=== PATIENT | male | born 1960 | race Caucasian/White ===

== ENCOUNTER 2020-02-02 07:18 | Inpatient (IN) | payer BC ==
[~2020-02-02] VITALS: Ht 182.9 cm; Wt 100.7 kg
--- NOTE | ~2020-02-02 | HEMODYNAMI ---
PATIENT:ESTEPHANIE GILES MEDICAL RECORD: [id number] : 56 LOCATION[facility] Simental2213 [id number] ADMISSION DATE: 02/02/20 Generatedon:02/05/20208:00 Patient name: ESTEPHANIE GILES Patient #: [id number] SSN: [id number] : 1960 Date of study: 02/05/2020 Page: Of Hemodynamic Procedure Report Patient Data Patient Demographics Procedure consent was obtained First Name: ESTEPHANIE Gender: Male Last Name: CHAN : 1960 Middle Initial: ANGEL Age: 59 year(s) Patient #: [id number] Race: SSN: [id number] Additional ID: [id number] Contact details [address]: [address] [place] [address] State: [place] City: [place] Zip code: [address] Past Medical History Performed procedures and imaging results Date Procedure Procedure Results Comments 02/02/2020 Stress testing Positive->Intermediate with SPECT MPI risk Allergies: No known allergies Admission Admission Data Admission Date: 02/02/2020 Admission Time: 9:23 Arrival Date: 02/05/2020 Arrival Time: 0:00 Admit Source: Other Insurance Payor: Private Room #: [id number] health insurance [facility] #: [id number] Lab Results Lab Result Date: 02/05/2020 Lab Result Time: 0:00 Biochemistry Name Units Result Min Max BUN mg/dl 15 --(--*-)-- 7 18 Creatinine mg/dl 1 --(--*-)-- 0.6 1.3 eGFR ml/min 81 *-(----)-- 90 120 NONAFRICAN CBC Name Units Result Min Max Hematocrit % 35.2 *-(----)-- 42 54 Hemoglobin g/dl 11.2 *-(----)-- 13.5 17.5 Procedure Procedure Types Cath Procedure Diagnostic Procedure LHC LHC w/Coronaries Sedation Charges Moderate Sedation up to 15 minutes Procedure Description Procedure Date Procedure Date: 02/05/2020 Procedure Start Time: 7:43 Procedure End Time: 7:57 Procedure Staff Name Function Ian Salinas MD Performing Physician Jae Perdomo RN Nurse Marlena Reed RT Monitor Rosangela Spencer RT Scrub Procedure Data Cath Procedure Fluoroscopy Diagnostic fluoroscopy Total fluoroscopy Time: 3.2 time: 3.2 min min Diagnostic fluoroscopy Total fluoroscopy dose: 716 dose: 716 mGy mGy Contrast Material Contrast Material Type Amount (ml) Isovue 300 66 Entry Location Entry Primary Successful Side Size Upsize Upsize Entry Closure Del Cid ccessful Closure Location (Fr) 1 (Fr) 2 (Fr) Remarks Device Remarks Radial Right 6 Fr Mechanical artery Short Compression Estimated blood loss: 5 ml Diagnostic catheters Device Type Used For End Catheter Placement DIAGNOSTIC Rocky 110cm Multi-vessel 5Fr catheter ([id number]) Angiography Procedure Complications No complications Procedure Medications Medication Administration Route Dosage 0.9% NaCl I.V. 100 ml/hr Oxygen etCO2 Nasal cannula 2 l/min Heparin Flush Bag added to field 2 bags (1000units/500ml NS) Lidocaine 2% added to field 20 Radial Cocktail added to field 1 syringe (Verapamil 2mg/Nitro 400mcg/Heparin 1500units) Versed I.V. 1 mg Fentanyl I.V. 50 mcg Radial Cocktail I.A. 1 syringe (Verapamil 2mg/Nitro 400mcg/Heparin 1500units) Versed I.V. 1 mg Hemodynamics Rest HGB: 11.2 (g/dl) Heart Rate: 70 (bpm) Pressure Samples Time Site Value (mmHg) Purpose Heart Use Rate(bpm) 7:48 LV 120/-5,10 Snapshot 73 7:48 AO 109/66(84) Pullback 77 7:48 LV 127/-1,13 Pullback 77 Gradients Valve Time Site 1 Site 2 Mean SEP/DFP Peak To Heart Use (mmHg) (sec/min) Peak Rate (mmHg) (bpm) Aortic 7:48 LV AO 9 15 18 77 127/-1,13 109/66(84) Calculations Valve P-P Mean Valve Index Valve Source Name Gradient Area Flow (cm2) Aortic 18 9 18 9 Snapshots Pre Cath Intra NCS Post Cath Vital Signs Time Heart Resp SPO2 etCO2 NIBP (mmHg) Rhythm Pain Sedation Rate (ipm) (%) (mmHg) Status Level (bpm) 7:26:11 69 20 95 0 135/84(115) NSR 0 (11) 10(A) , No pain 7:30:23 72 21 94 0 136/82(112) NSR 0 (11) 10(A) , No pain 7:34:35 69 24 96 0 132/82(112) NSR 0 (11) 10(A) , No pain 7:38:47 68 17 96 0 130/77(114) NSR 0 (11) 10(A) , No pain 7:42:57 68 18 94 0 131/79(103) NSR 0 (11) 10(A) , No pain 7:47:13 70 18 94 0 108/61(83) NSR 0 (11) 9(A) , No pain 7:51:17 73 18 94 0 112/72(91) NSR 0 (11) 9(A) , No pain 7:55:25 67 19 94 0 132/67(95) NSR 0 (11) 10(A) , No pain Medications Time Medication Route Dose Verified Delivered Reason Notes Effectiveness by by 7:40:05 0.9% NaCl I.V. 100 Jae Jae Per ml/hr Conor Perdomo physician RN RN 7:40:15 Oxygen etCO2 2 l/min Jae Jae for low 02 Nasal Lorigan Lorigan sats cannula RN RN 7:40:27 Heparin Flush added 2 bags Jae Jae used for Bag to Conor Perdomo procedure (1000units/500ml [facility] RN RN NS) 7:40:39 Lidocaine 2% added 20ml Jae Jae for local to vial Lorigan Lorigan anesthetic field RN RN 7:40:50 Radial Cocktail added 1 Jae Jae used for (Verapamil to syringe Lorigan Lorigan procedure 2mg/Nitro field RN RN 400mcg/Heparin 1500units) 7:41:08 Versed I.V. 1 mg Jae Jae for sedation Conor Perdomo RN RN 7:41:16 Fentanyl I.V. 50 mcg Jae Jae for sedation Conor Perdomo RN RN 7:46:16 Radial Cocktail I.A. 1 Jae Ian for (Verapamil syringe Conor Salinas MD vasodilation 2mg/Nitro RN 400mcg/Heparin 1500units) 7:46:26 Versed I.V. 1 mg Jae Jae for sedation Conor Perdomo RN banquet coordinator Log Time Note 6:39:00 Informed consent obtained and on chart 6:39:25 Diagnostic Cath Status : Elective 6:39:37 Arrival Date: 02/05/2020 12:00:00 AM 6:39:38 Admit Source: Other 6:39:43 Insurance Payor : Private health insurance 6:48:08 Lab Result : eGFR NONAFRICAN 81 ml/min 6:48:08 Lab Result : Hemoglobin 11.2 g/dl 6:48:08 Lab Result : BUN 15 mg/dl 6:48:08 Lab Result : Creatinine 1 mg/dl 6:48:08 Lab Result : Hematocrit 35.2 % 6:48:13 Procedure Status Urgent Heart Cath (IP). 6:48:15 Time tracking: Regular hours (M-F 7:00 - 5:00) 6:48:20 Plan of Care:Hemodynamics will remain stable., Cardiac rhythm will remain stable., Comfort level will be maintained., Respiratory function will remain adequate., Patient/ family verbilizes understanding of procedure., Procedure tolerated without complication., Recovers from procedure without complications.. 6:48:29 H&P Date Dictated: 02/02/2020 Within 30 days and on chart.. 6:48:53 Stress Test: yes; abnormal INFERIOR 6:49:10 Risk of Mortality: 0.1 6:49:13 Risk of blood transfusion: 2.7 6:49:20 Risk of MESFIN: 0.3 7:02:14 Marlena Reed RT(R) sent for patient. Start room use. 7:25:05 Patient received from Med II to CCL 2 Alert and oriented. Tansferred to table in Supine position. 7:25:06 Warm blankets applied, and ike hugger turned on for patient comfort. 7:25:06 Correct patient and procedure confirmed by team. 7:25:07 ECG and BP/O2 sat monitors applied to patient. 7:25:08 Vital chart was started 7:25:09 Pre-procedure instructions explained to patient. 7:25:09 Pre-op teaching completed and patient verbalized understanding. 7:25:12 Family in patients room. 7:25:15 Patient NPO since Midnight. 7:25:22 Patient allergic to No known allergies 7:25:24 Is the patient allergic to Iodine/contrast media? No. 7:25:26 Is the patient allergic to Iodine/contrast media? No. 7:25:30 Was the patient premedicated? Unknown 7:25:36 Patient diabetic? Yes. 7:25:37 If diabetic: On Metformin? Yes 7:25:41 If on Metformin: Last Dose? 02/03/2020 7:25:43 ----Pre-sedation anethsthesia assessment.---- 7:25:46 Previous problem with sedation/anesthesia? No ? 7:25:48 Snore? Yes 7:25:50 Sleep apnea? No 7:25:51 Deviated septum? No 7:25:53 Opens mouth fully? Yes 7:25:57 Sticks out tongue? Yes 7:25:59 Airway obstruction? No ? 7:26:01 Dentures? No ? 7:36:11 Pre procedure: right dorsailis pedis pulse 2+ Normal; easily identifiable; not easily obliterated 7:36:13 Pre procedure: left dorsailis pedis pulse 2+ Normal; easily identifiable; not easily obliterated 7:36:16 Modified Yoel's test Radial < 7 seconds 7:36:18 Patient pain scale 0/10 ?. 7:36:23 IV patent on arrival in left forearm with 0.9% NaCl at O. 7:36:26 Lab results completed and on chart. 7:36:30 Right Radial & Right Groin area was prepped with chlora-prep and draped in sterile fashion 7:36:31 Alarms reviewed by R. N. 7:36:31 Sharps counted by scrub and verified by R.N. 7:36:33 Physician arrived 7:36:33 --------ALL STOP TIME OUT------ 7:36:34 Final Timeout: patient, procedure, and site verified with staff and physician. All members of the team are in agreement. 7:36:36 Right Radial & Right Groin site verified by team. 7:36:39 Fire Safety Assessment: A--An alcohol-based skin anteseptic being used preoperatively., C--Open oxygen or nitrous oxide is being used., D--An ESU, laser, or fiber-optic light is being used. 7:36:43 Physical assessment completed. ASA score P 2 - A patient with mild systemic disease as per Ian Salinas MD. 7:38:56 2) 60-89 Mildly reduced kidney function, and other findings (as for stage 1) point to kidney disease. 7:39:02 Maximum allowable contrast dose (3.7 X eGFR X 0.75)225 ml. 7:39:05 Sedation plan: IV Moderate Sedation Medication:Versed, Fentanyl 7:39:51 Use device set Radial Dx or PCI 7:39:52 ACIST Syringe (23009) opened to sterile field. 7:39:52 Medline Cath Pack ([id number]) opened to sterile field. 7:39:52 Bag Decanter (2002) opened to sterile field. 7:39:53 ACIST Hand Control (82790) opened to sterile field. 7:39:53 ACIST Manifold (05641) opened to sterile field. 7:39:53 Tegaderm 4 x 4 (1626W) opened to sterile field. 7:39:54 MBrace Wrist Support (939484410) opened to sterile field. 7:39:56 NEEDLE Cook 21G 4cm Radial (Y12942) opened to sterile field. 7:39:57 EMERALD Guide Wire (708-398) opened to sterile field. 7:39:58 SHEATH 6FR RAIN (5353584) opened to sterile field. 7:40:05 0.9% NaCl 100 ml/hr I.V. was administered by Jae Perdomo RN; Per physician; Verbal order read back and verified. 7:40:15 Oxygen 2 l/min etCO2 Nasal cannula was administered by Jae Perdomo RN; for low 02 sats; Verbal order read back and verified. 7:40:27 Heparin Flush Bag (1000units/500ml NS) 2 bags added to field was administered by Jae Perdomo RN; used for procedure; Verbal order read back and verified. 7:40:39 Lidocaine 2% 20ml vial added to field was administered by Jae Perdomo RN; for local anesthetic; Verbal order read back and verified. 7:40:50 Radial Cocktail (Verapamil 2mg/Nitro 400mcg/Heparin 1500units) 1 syringe added to field was administered by Jae Perdomo RN; used for procedure; Verbal order read back and verified. 7:41:08 Versed 1 mg I.V. was administered by Jae Perdomo RN; for sedation; Verbal order read back and verified. 7:41:16 Fentanyl 50 mcg I.V. was administered by Jae Perdomo RN; for sedation; Verbal order read back and verified. 7:43:31 Procedure started. 7:43:31 Full Disclosure recording started 7:43:38 Local anesthetic to right radial artery with Lidocaine 2% by Ian Salinas MD.INITIAL ACCESS ONLY 7:43:47 A 6 Fr Short sheath was inserted into the Right Radial artery 7:46:16 Radial Cocktail (Verapamil 2mg/Nitro 400mcg/Heparin 1500units) 1 syringe I.A. was administered by Ian Salinas MD; for vasodilation; Verbal order read back and verified. 7:46:26 Versed 1 mg I.V. was administered by Jae Perdomo RN; for sedation; Verbal order read back and verified. 7:47:16 Baseline sample Acquired. 7:48:00 A DIAGNOSTIC Rocky 110cm 5Fr catheter (114245) was advanced over the wire and used for Multi-vessel Angiography. 7:48:27 LV hemodynamics recorded. 7:48:28 LV gram done using ROSA 7:48:30 Injector settings: Ml/sec: 5, Volume: 15, 7:48:39 EF : 60 % 7:50:02 LCA angiography performed. 7:50:05 Injector settings: Ml/sec: 3, Volume: 6, 7:51:37 RCA angiography performed. 7:51:52 Injector settings: Ml/sec: 3, Volume: 6, 7:53:12 Catheter removed. 7:53:17 ZEPHYR REGULAR TR BAND (499049) opened to sterile field. 7:53:27 Sheath removed intact; hemostasis achieved with Mechanical Compression to the Right Radial artery. 7:55:11 Procedure ended.(Physican Out) 7:55:35 Fluoroscopy time 03.20 minutes. 7:55:40 Fluoroscopy dose: 716 mGy 7:55:40 Flurop Dose total: 716 7:55:45 Dose Area Product 00176 mGy/cm. 7:55:49 Contrast amount:Isovue 300 66ml. 7:55:51 Maximum allowable dose exceeded? No. 7:55:52 Sharps counted by scrub and verified by R.N. 7:55:55 [place] band inflated with 10cc of air. 7:55:57 Insertion/operative site no bleeding no hematoma. 7:55:58 Post Procedure Pulses reassessed and unchanged 7:56:01 Post procedure rhythm: unchanged. 7:56:22 Estimated blood loss: 5 ml 7:56:24 Post procedure instruction explained to patient.Patient verbalizes understanding. 7:56:24 Patient needs reinforcement of post procedure teaching. 7:56:56 Procedure type changed to Cath procedure, Diagnostic procedure, LHC, C w/Coronaries, Sedation Charges, Moderate Sedation up to 15 minutes 7:56:57 Procedure and supply charges have been captured, reviewed, submitted and are correct. 7:57:01 Procedure Complication : No complications 7:57:03 Vital chart was stopped 7:57:04 [facility] Findings: MVD- CABG consult 7:57:06 Operative report dictated upon procedure completion. 7:57:06 See physician's report for complete and final results. 7:57:07 Report given to Med II. 7:57:10 Patient transfered to Med II with Stretcher. 7:57:14 Procedure ended. 7:57:14 Full Disclosure recording stopped 7:57:22 End room use (Document Last) 7:59:38 End room use (Document Last) 8:00:02 End room use (Document Last) Device Usage Item Name Manufacture Quantity Catalog Hospital Part Current Minima l Lot# / Number Charge Number Stock Stock Serial# Code ACIST Acist 1 61375 835219 262517 964122 20 Syringe Medical (08605) Systems Inc Medline Medline 1 [id number] 777472 30966 203779 5 Cath Pack ([id number]) Bag Microtek 1 124264 63911 505666 5 Decanter Medical Inc. () ACIST Hand Acist 1 01871 334713 420230 170989 5 Control Medical (30266) Systems Inc ACIST Acist 1 69723 170691 699416 559316 5 Manifold Medical (08639) Systems Inc Tegaderm 4 3M 1 1626W 769430 837802 870869 5 x 4 (1626W) MBrace Advanced 1 140-0250-00 813685 91871 106372 5 Wrist Vascular Support Dynamics (888144009) NEEDLE vBrand Medical 1 M85500 101867 641049 016464 5 21G 4cm Radial (M96827) EMERALD Cardinal 1 502-455 985870 915451 595191 5 Guide Wire Health (415-362) SHEATH 6FR Cardinal 1 0346666 653650 8926347 091694 5 [facility] Health (5507728) DIAGNOSTIC Terumo 1 40-5553 375371 089230 071732 5 Rocky 110cm 5Fr catheter (657325) ZEPHYR Cardinal 1 943828 284562 8548890 010690 5 REGULAR TR Health BAND (435513) Signature Audit [place] Stage Time Signature Unsigned Intra-Procedure 02/05/2020 Marlena Reed 7:59:38 AM RT(R) Intra-Procedure 02/05/2020 Jae 8:00:02 AM Conor RN Intra-Procedure 02/05/2020 Ian Salinas MD 8:00:28 AM Signatures Performing Physician : Signature : Ian Salinas MD Date : Time : Nurse : Jae Perdomo Signature : RN Date : Time : Monitor : Marlena Reed RT Signature : Date : Time : [facility] [address] [place] [address], [place] [address]
[2020-02-02] MEDS ORDERED: GLUCOPHAGE500 MG PO (07:31)
[2020-02-02] MEDS ORDERED: AMBIEN10 MG PO (07:32)
[2020-02-02] MEDS ORDERED: LISINOPRIL5 MG PO (07:32)
[2020-02-02 08:25] LABS: HEMATOCRIT 33.8 % (42.0-54.0); LYMPHOCYTES 15.5 % (15-50); MCH 26.1 pg (26.0-34.0); MCHC 32.5 g/dL (31.0-37.0); MCV 80.1 fL (80.0-100.0); NEUTROPHILS 74.8 % (40-80); RBC 4.22 10x6/uL (4.20-6.10); RDW 12.7 % (11.5-14.5); WBC 6.7 10x3/uL (4.8-10.8)
[2020-02-02 08:31] LABS: PLATELET COUNT 225 10x3/uL (130-400)
[2020-02-02 08:40] LABS: APTT 29.8 SECONDS (22.8-39.4); CALC OSMOLALITY 283 mosm/kg (275-300); CALCIUM 8.8 mg/dL (8.5-10.1); CARBON DIOXIDE 24.5 mmol/L (21.0-32.0); CHLORIDE - SERUM 106 mmol/L (98-107); INR 0.98 (0.85-1.17); POTASSIUM - SERUM 4.6 mmol/L (3.5-5.1); SODIUM 140 mmol/L (136-145); UREA NITROGEN 15 mg/dL (7-18); eGFR NON AFRICAN AMERICAN 81 mL/min (90-120)
[2020-02-02 08:42] LABS: GLUCOSE 165 mg/dL (74-106)
--- NOTE | 2020-02-02 08:43 | NUR ---
GLUCOSE COLLECTED VIA LABWORK.
[2020-02-02 08:55] VITALS: BP 128/78
[2020-02-02 08:57] LABS: ALBUMIN 3.7 g/dL (3.4-5.0); ALKALINE PHOSPHATASE 72 U/L (30-120); ALT (SGPT) 32 U/L (10-68); BILIRUBIN - TOTAL 0.28 mg/dL (0.2-1.3); CKMB 0.5 U/L (0.0-3.6); CREATINE KINASE 92 UL (21-232); MAGNESIUM - SERUM 1.7 mg/dL (1.8-2.4); PROTEIN - SERUM 7.2 g/dL (6.4-8.2); THYROID STIMULATING HORMONE 0.73 uIU/mL (0.36-3.74); TROPONIN-I < 0.017 ng/mL (0.000-0.060)
[2020-02-02 11:55] VITALS: BP 145/83
[2020-02-02 16:18] VITALS: BP 139/73
[2020-02-02 16:51] VITALS: BP 130/76; BMI 30.2
[2020-02-02] MEDS ORDERED: METHOCARBAMOL500 MG PO (17:55)
[2020-02-02] MEDS ORDERED: HYDROCODON-ACE1 EA10 PO (17:56)
[2020-02-02] MEDS ORDERED: DICLOFENAC SODI50 MG PO (17:56)
[2020-02-02 20:00] VITALS: BP 114/75
--- NOTE | 2020-02-02 20:00 | NUR ---
PT SITTING UP IN BED WITHOUT DISTRESS, AOX4. AT BESIDE. PT HAS NO WEAKNESS/DEFECITS AT THIS TIME. 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 REQUESTED AMBIEN TO TAKE TONIGHT. CALLED DR PHILLIPS, ORDER RECIEVED FOR AMBIEN. DENIES OTHER NEEDS. CL IN REACH, WILL CTM
[2020-02-03] VITALS: BP 132/74
[2020-02-03 04:00] VITALS: BP 114/62
[2020-02-03 05:15] LABS: HEMATOCRIT 32.4 % (42.0-54.0); HEMOGLOBIN 10.6 g/dL (13.5-17.5); MCH 26.2 pg (26.0-34.0); MCHC 32.7 g/dL (31.0-37.0); MEAN PLATELET VOLUME 7.8 fL (7.4-10.4); NEUTROPHILS 67.1 % (40-80); PLATELET COUNT 229 10x3/uL (130-400); RBC 4.05 10x6/uL (4.20-6.10); RDW 12.6 % (11.5-14.5); WBC 6.5 10x3/uL (4.8-10.8)
[2020-02-03 05:52] LABS: ALBUMIN 3.4 g/dL (3.4-5.0); ALKALINE PHOSPHATASE 59 U/L (30-120); ALT (SGPT) 32 U/L (10-68); BILIRUBIN - TOTAL 0.53 mg/dL (0.2-1.3); CALC OSMOLALITY 273 mosm/kg (275-300); CALCIUM 8.4 mg/dL (8.5-10.1); CHLORIDE - SERUM 103 mmol/L (98-107); CKMB 0.7 U/L (0.0-3.6); CREATINE KINASE 106 UL (21-232); GLUCOSE 125 mg/dL (74-106); PROTEIN - SERUM 6.9 g/dL (6.4-8.2); SODIUM 136 mmol/L (136-145); TROPONIN-I < 0.017 ng/mL (0.000-0.060); UREA NITROGEN 14 mg/dL (7-18); eGFR NON AFRICAN AMERICAN 81 mL/min (90-120)
[2020-02-03 09:35] VITALS: BP 109/65
[2020-02-03 09:41] LABS: CHOL - HDL RATIO 5.5 ratio (2.3-4.9); LDL-HDL RATIO 3.4 ratio (1.5-3.5)
[2020-02-03 13:17] VITALS: BP 131/74
[2020-02-03 14:08] VITALS: BMI 30.1
[2020-02-03 16:50] VITALS: Ht 182.9 cm; Wt 100.7 kg
[2020-02-03 17:47] VITALS: BP 139/76
[2020-02-03 20:00] VITALS: BP 128/77
[2020-02-04 04:00] VITALS: BP 136/80
--- NOTE | 2020-02-04 06:46 | HP ---
PATIENT: ESTEPHANIE GILES MEDICAL RECORD: [id number] ACCOUNT: [id number] LOCATION:D.MS Simental2213 : 56 ADMISSION DATE: 02/02/20 PCP: MARIA TERESA PHILLIPS MD HISTORY AND PHYSICAL EXAMINATION REASON FOR ADMISSION: Left-sided weakness and chest tightness. HISTORY OF PRESENT ILLNESS: The patient is a 59-year-old male with history of metabolic syndrome. He has noted for the last month or so, if he weed-eats the yard or does anything strenuous, he will have substernal chest discomfort, described as a tightness. If he stops and rest it, he will gradually resolve. He has had no radiation of pain, nausea, vomiting or shortness of breath. Yesterday, he [facility] Upon returning home, getting out of the car, he felt like he had sat on his billfold too long that his left leg felt a little numb. He is able to unload the groceries, but noticed through the night that the symptoms continued and his leg felt a little bit unsteady, it did not respond. He also had some symptoms of his left upper extremity. His dialysis registered nurse was off. Denies headache or visual changes. He did not improve. This morning, he came to the Emergency Room for this reason. He also has had this exertional chest discomfort, but had not mentioned to his originally. He admits to some mild fatigue, but no overt palpitations or near syncope. PAST MEDICAL HISTORY: AODM, well controlled, obesity, had sigmoid diverticulosis requiring laparoscopic assisted sigmoidectomy in 2012, hyperlipidemia, history of lumbago, cervical arthritis and ACF, history of statin myalgias, IBS, history of chronic anxiety, history of kidney stones, and essential hypertension. PAST SURGICAL HISTORY: Laparoscopic assisted left sigmoid resection in 2014, anterior cervical fusion, and carpal tunnel release. FAMILY HISTORY: Positive for hypertension and grandfather had colon cancer. SOCIAL HISTORY: He is . 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 He is a nonsmoker, drinks some alcohol occasionally. ALLERGIES: None mentioned. HOME MEDICATIONS: Diclofenac 50 mg b.i.d. after meals, [place] 10/325 one at bedtime p.r.n. severe cervical back pain, lisinopril 10 mg a day, Ambien 10 mg at bedtime for sleep, and metformin 500 nightly. REVIEW OF SYSTEMS: GENERAL: He has not had weight change, fever or fatigue. HEENT: No recent visual change, sinus congestion, sore throat or trouble articulating. RESPIRATORY: No SOB or cough or hemoptysis. CARDIAC: He has had exertional chest discomfort that will occur with doing yard work or walking up steps. It will last 2-3 minutes. If he sits and rests, then resolves. It does not radiate. It was not associated with shortness of breath, palpitations, nausea or vomiting. GASTROINTESTINAL: No recent dyspepsia, change in stools or blood per rectum. GENITOURINARY: Nocturia once nightly. No dysuria. MUSCULOSKELETAL: Has chronic cervical neck pain. HISTORY AND PHYSICAL [id number] ESTEPHANIE GILES SKIN: No radiculopathy. INTEGUMENTARY: No rash or itching. PSYCHIATRIC: Admits to anxiety, but no depressed mood. PHYSICAL EXAMINATION: VITAL SIGNS: A 59-year-old male. At this time, he has clear speech. Oriented to person, place, and time. He is in no acute distress and chest pain-free currently. VITAL SIGNS: Temperature 97.3 Fahrenheit orally, pulse is 72 and regular, respirations are 18, blood pressure 150/86 initially, he is now 128/78, sats 98% on room air. GENERAL: The patient is alert and oriented. HEENT: Eyes are clear. He has male pattern balding. Oropharynx unremarkable. NECK: Shows limited range of motion, flexion, extension, which is chronic. Carotids: No bruits. Thyroid not enlarged. CHEST: Distant breath sounds without wheeze or rales. HEART: Regular rate and rhythm, without MGR. PMI appropriate. ABDOMEN: Soft, obese, nontender. No organomegaly or tenderness. GENITOURINARY: Deferred. EXTREMITIES: No CC&E. NEUROLOGICAL: Oriented to person, place, and time. Cranial nerves intact. Gait was not tested. He has slight decreased dialysis registered nurse in the left versus the right, he is right handed. He has slight decreased flexion and extension of his right quadriceps. Babinski's are negative. Sensory is intact throughout. Initial CT scan of the brain was unremarkable. Chest x-ray is unremarkable. LABORATORY DATA: H&H is 11 and 33.8 with normal indices. PT and PTT are normal. Magnesium was low at 1.7, BUN and creatinine are 15 and 1.1, potassium is 4.6, glucose is 165, nonfasting. Cardiac enzymes are negative. Liver functions are normal. EKG shows sinus rhythm with right bundle-branch block, age indeterminate. CT of the head with and without contrast showed no hemorrhage, infarction or extra fluid collections moderate to marked atherosclerosis of the carotid siphons with resultant moderate stenosis bilaterally. No significant evidence of occlusion. Posterior circulation was difficult to assess due to streak artifact from dental appliance. ASSESSMENT: 1. Symptoms of transient ischemic attack versus cerebrovascular accident. The patient is be on the 4-hour window for thrombolytics. 2. Exertional chest pain suggesting angina. 3. Metabolic syndrome. 4. Hypomagnesemia. PLAN: The patient will be admitted for telemetry, cardiology, and neurology consultation. We will order echo bubble study today. Place nitropatch. Further workup to follow. TRANSINT:[id number] Voice Confirmation ID: [id number] DOCUMENT ID: [id number] HISTORY AND PHYSICAL [id number] ESTEPHANIE GILES TIMOTHY MD at 0646 CC: [id number] DICTATION DATE: 02/02/20 170 INFORMATION SYSTEMS SECURITY SPECIALIST: 02/02/204 ADM IN [place] [id number] [place] [id number]
[2020-02-04 07:01] LABS: CALC OSMOLALITY 271 mosm/kg (275-300); CALCIUM 8.9 mg/dL (8.5-10.1); CARBON DIOXIDE 24.8 mmol/L (21.0-32.0); CHLORIDE - SERUM 100 mmol/L (98-107); GLUCOSE 148 mg/dL (74-106); POTASSIUM - SERUM 3.9 mmol/L (3.5-5.1); SODIUM 134 mmol/L (136-145); UREA NITROGEN 15 mg/dL (7-18); eGFR NON AFRICAN AMERICAN 81 mL/min (90-120)
--- NOTE | 2020-02-04 08:08 | EC ---
PATIENT:ESTEPHANIE GILES DATE OF SERVICE: 02/02/20 SEX: M MEDICAL RECORD: [id number] DATE OF : 56 LOCATION:D.MS Arshad AGE OF PATIENT: 59 ADMISSION DATE: 02/02/20 REFERRING PHYSICIAN: INTERPRETING PHYSICIAN: GIULIANA SALGADO MD ECHOCARDIOGRAM REPORT ECHO CHARGES 4 ECHO COMPLETE Date: 02/03/20 CLINICAL DIAGNOSIS: CVA ECHOCARDIOGRAPHIC MEASUREMENTS (adult normal given) AC root (d.<3.7cm) 3.6 cm LV Septum d (<1.2 cm> 0.8 cm Valve Excursion 1.3 cm LV Septum (systole) 1.7 cm Left Atria (s.<4.0cm> 3.3 cm LVPW d(<1.2cm) 1.0 cm RV (d.<2.3cm) 3.4 cm LVPW (sytole) 1.3 cm LV diastole(<5.6CM) 5.7 cm MV E-F(>70mm/sec) cm LV systole 3.3 cm LVOT Diameter 1.7 cm MV exc.(>10mm) cm Est.ejection fraction (50-75%) % DOPPLER: LVIT cm/sec A 95 cm/sec E 87 cm/sec LA cm/sec RVSP 25.3 mmHg LVOT 117 cm/sec AOP1/2T m/s Asc. Ao 173 cm/sec RVOT 90 cm/sec RA cm/sec PA 105 cm/sec AV Gradient Peak 12.0 mmHg AV Mean 7.1 mmHg AV Area 1.6 cm MV Gradient Peak 3.9 mmHg MV Mean 1.6 mmHg MV Area cm COMMENTS: Calibration Specialist: Kapil DE LEÓN Electric Relay Tester: 3 Dr. Pennington TAPE# PACS Pericardial Effusion N DATE OF SERVICE: Adequate 2D, color flow imaging, spectral Doppler, and M-Mode. No LVH. LV internal dimension is normal. Wall motion is normal. EF is greater than or equal to 55%. Aortic valve is tricuspid. No evidence of stenosis with Doppler interrogation. Left atrium is normal. Mitral valve shows no prolapse. Trivial MR. Right-sided chambers are grossly normal. Trivial TR. NTS:[id number] Voice Confirmation ID: [id number] DOCUMENT ID: [id number] ECHOCARDIOGRAM REPORT [id number] ESTEPHANIE GILES GIULIANA SALGADO MD at 0808 CC: [id number] DICTATION DATE: 02/03/20 1436 HAND WORKER: 02/03/201915 ADM IN [facility] [address] [place] [id number]
[2020-02-04 09:07] VITALS: BP 138/74
[2020-02-04 12:50] VITALS: BP 98/63
--- NOTE | 2020-02-04 13:06 | NUR ---
I have reviewed this patient and I concur with the Shift Assessment completed by the Licensed Practical Nurse today this shift.
[2020-02-04 16:12] LABS: HEMATOCRIT 35.2 % (42.0-54.0); HEMOGLOBIN 11.2 g/dL (13.5-17.5); LYMPHOCYTES 11.5 % (15-50); MCH 25.9 pg (26.0-34.0); MCHC 31.8 g/dL (31.0-37.0); MCV 81.3 fL (80.0-100.0); MEAN PLATELET VOLUME 8.6 fL (7.4-10.4); NEUTROPHILS 80.6 % (40-80); PLATELET COUNT 233 10x3/uL (130-400); RBC 4.33 10x6/uL (4.20-6.10); RDW 12.9 % (11.5-14.5); WBC 7.9 10x3/uL (4.8-10.8)
--- NOTE | 2020-02-04 16:26 | NUR ---
OT NOTE: PT COMPLETED EOB SITTING WITH SPV. PT STATED HIS R SIDE OF NECK IS STIFF FROM BED. PT COMPLETED ADL MOB WITH NO ASSISTIVE DEVICE WITH SPV. PT COMPLETED HYGIENE TASKS AT SINK LEVEL WITH SPV. [phone] THANK YOU,LUCAS REAL
[2020-02-04 16:40] LABS: CHOL - HDL RATIO 5.1 ratio (2.3-4.9); LDL-HDL RATIO 3.4 ratio (1.5-3.5)
[2020-02-04 16:45] VITALS: BP 137/76
--- NOTE | 2020-02-04 18:00 | NUR ---
A&O SITTING UP IN BED. NO C/O PAIN. NO S/S OF ACUTE DISTRESS NOTED. CONSENTS FOR HEART CATH TOMORROW SIGNED. DENIES ANY NEEDS AT THIS TIME. CALL LIGHT IN REACH. WILL CONTINUE TO MONITOR.
[2020-02-04 20:00] VITALS: BP 129/76
[2020-02-05 04:00] VITALS: BP 142/85
--- NOTE | 2020-02-05 05:32 | NUR ---
I have reviewed this patient and I concur with the Shift Assessment completed by the Licensed Practical Nurse today this shift.
[2020-02-05 12:00] VITALS: BP 126/70
--- NOTE | 2020-02-05 14:49 | NUR ---
TR BAND REMOVED TO RIGHT RADIAL AFTER FOLLOWING PROTCAL. WILL CTM
--- NOTE | 2020-02-05 16:02 | NUR ---
RESTS IN BED WITH CALL LIGHT IN REACH. TELEMETRY SR. DR. ARTHUR AND AT BS. WILL CONT. PLAN OF CARE.
[2020-02-05] MEDS ORDERED: ASPIRIN325 MG PO (18:05)
[2020-02-05] MEDS ORDERED: COREG 3.1253.125 MG PO (18:07)
[2020-02-05] MEDS ORDERED: AMBIEN5 MG PO (18:07)
--- NOTE | 2020-02-06 16:32 | MORECARE ---
CASE MANAGEMENT DISCHARGE SUMMARY PATIENT: ESTEPHANIE GILES UNIT: [id number] ADM DATE: 02/02/20 AGE: 59 : 56 SEX: M ROOM/BED: D.2114 AUTHOR: HELEN BRITTON PHYSICIAN: REFERRING PHYSICIAN: MARIA TERESA PHILLIPS MD DATE OF SERVICE: 02/06/20 Discharge Plan Patient Name: ESTEPHANIE GILES [facility] [facility] 1960 Planned Disposition: Home Anticipated Discharge Date: 02/05/20 Discharge Date: 02/05/2020 Expected LOS: 3 Initial Reviewer: [email or web address] Initial Review Date: 02/02/2020 Generated: 02/06/20 5:31 pm Patient Name: ESTEPHANIE GILES Page 16030 at 1632 All edits/amendments must be made on the electronic document DICTATION DATE: 02/06/20 1631 RAILROAD MECHANIC: ALIYAH 02/06/20 1631 RPT#: [id number] DC DATE:02/05/20 STATUS: DIS IN [facility] [address] [place] [address] END OF REPORT
== END 2020-02-05 19:30 | disposition home or self-care (01) | DRG 66 ==
LOC: D.ER 07:18 → D.MS 09:23 → D.M2 02-05 08:15
PROVIDERS: Family Medicine; Internal Medicine Cardiovascular Disease; ADMIT Family Medicine; ATTEND Family Medicine
DX: I63.9 Cerebral infarction, unspecified (principal); I10 Essential (primary) hypertension; E11.9 Type 2 diabetes mellitus without complications; E78.5 Hyperlipidemia, unspecified; I45.10 Unspecified right bundle-branch block; Z82.49 Family history of ischemic heart disease and other diseases of the circulatory system; I25.10 Atherosclerotic heart disease of native coronary artery without angina pectoris; E88.81 Metabolic syndrome and other insulin resistance

== ENCOUNTER 2020-03-15 05:00 | Inpatient (IN) | payer BC ==
[2020-03-09 12:51] LABS: BASOPHILS 0.8 % (0-2); BILIRUBIN NEGATIVE (NEGATIVE); EOSINOPHILS 5.4 % (0-7); HEMATOCRIT 37.9 % (42.0-54.0); HEMOGLOBIN 12.3 g/dL (13.5-17.5); IMMATURE GRANULOCYTES 0.2 % (0-5); KETONE NEGATIVE (NEGATIVE); LYMPHOCYTES 20.2 % (15-50); MCH 26.2 pg (26.0-34.0); MCHC 32.5 g/dL (31.0-37.0); MCV 80.6 fL (80.0-100.0); MEAN PLATELET VOLUME 8.7 fL (7.4-10.4); MONOCYTES 9.6 % (2-11); NEUTROPHILS 63.8 % (40-80); NITRITE NEGATIVE (NEGATIVE); RDW 14.5 % (11.5-14.5); UROBILINOGEN NORMAL (NORMAL); WBC 5.2 10x3/uL (4.8-10.8)
[2020-03-09 12:53] LABS: PLATELET COUNT 148 10x3/uL (130-400)
[2020-03-09 13:11] LABS: ALBUMIN 4.2 g/dL (3.4-5.0); ANION GAP 11.2 mmol/L (8-16); BILIRUBIN - TOTAL 0.39 mg/dL (0.2-1.3); CALCIUM 9.6 mg/dL (8.5-10.1); CARBON DIOXIDE 29.1 mmol/L (21.0-32.0); CREATININE - SERUM 1.4 mg/dL (0.6-1.3); PHOSPHOROUS 3.6 mg/dL (2.5-4.9); POTASSIUM - SERUM 5.3 mmol/L (3.5-5.1); PROTEIN - SERUM 8.2 g/dL (6.4-8.2); T4 THYROXIN - FREE 1.21 ng/dL (0.76-1.46); THYROID STIMULATING HORMONE 0.84 uIU/mL (0.36-3.74); URIC ACID 8.7 mg/dL (2.6-7.2)
[2020-03-09 13:17] LABS: APTT 32.6 SECONDS (22.8-39.4); INR 1.04 (0.85-1.17); PROTIME 13.5 SECONDS (11.6-15.0)
[2020-03-15] VITALS (44 sets, daily range): BP systolic 97–137; BP diastolic 49–92; BMI 29.7; BMI 30.5
[~2020-03-15] VITALS: Ht 182.9 cm; Wt 95.0 kg
[~2020-03-15 05:00] MED LIST: AMBIEN10 MG PO; AMBIEN5 MG PO; ASPIRIN325 MG PO; BAYER CHEWABLE81 MG PO; COREG 3.1253.125 MG PO; DICLOFENAC SODI50 MG PO; FLOMAX0.4 MG PO; GLUCOPHAGE500 MG PO; HYDROCODON-ACE1 EA10 PO; LISINOPRIL5 MG PO; METHOCARBAMOL500 MG PO; NEXLETOL PO; NITROQUICK0.4 MG SL; PLAVIX75 MG PO; ZYRTEC10 MG PO
--- NOTE | 2020-03-15 13:05 | NUR ---
PT ARRIVED IN THE UNIT FROM THE OR. PT SEDATED AND ON THE VENTILATOR. 9.0 ETT NTOED 24 AT THE LIP. RIGHT IJ CVL NOTED. PT HAS CED AND PLASMALYTE INFUSING. NSR ON THE MONITOR. MIDSTERNAL DRESSING C/D/I. SUBSTERNAL DRESSIG C/D/I. CT X2 NOTED TO 20 CM OF H2O SUCTION. NO AIR LEAK NOTED. LEFT SUBSTERNAL CJ DRAIN COMPRESSED WITH BLOODY DRAINAGE NOTED. TPM WIRES CONNECTED TO TPM. TPM TURNED OFF PER DR ARTHUR. RIGHT RADIAL JANEE NOTED. GOOD WAVE FORM NOTED. WRIST PROTECTOR ON AND CAP REFILL <3 SECONDS. FC NOTED WITH CLEAR, YELLOW URINE NOTED. RLE HARVEST SITE NOTED. RLE WRAPPED IN KERLEX FROM ANKLE TO GROIN. BILATERAL DP AND PT PULSES PALPABLE. CALL LIGHT IN REACH. [facility] ONT POC.
--- NOTE | 2020-03-15 13:30 | NUR ---
AT THE PTS BEDSIDE. PER DR ARTHUR, GIVE PLASMALYTE 250ML/H FOR 1 HOUR.
--- NOTE | 2020-03-15 15:18 | NUR ---
BP DROPPED. DR ARTHUR AT THE PTS BEDSIDE. START VASOPRESSIN IF NEEDED. GIVE 250ML BOLUS. AFTER 3 MINS, PT BP STABALIZED. 139/71
--- NOTE | 2020-03-15 16:11 | NUR ---
AT THE PTS BEDSIDE. UPDATE GIVEN. VSS. WILL CONT POC.
--- NOTE | 2020-03-15 16:17 | NUR ---
DR ARTHUR AT THE PTS BEDSIDE. NO NEW ORDERS.
--- NOTE | 2020-03-15 17:38 | NUR ---
SMALL AIR LEAK NOTED IN THE CT. DRESSING REDONE AND CT CONNECTIONS RETAPED. CT STILL LEAKING. DR ARTHUR NOTIFIED. NO NEW ORDERS.
--- NOTE | 2020-03-15 18:46 | NUR ---
PT PASSED WEENING TRIALS. ABG'S OBTAINED AND DR ARTHUR CALED WITH RESULTS. TREAT CA AND GIVE 1 AMP HCO3. OK TO EXTUBATE. TURN OFF VASOPRESSIN AND WEEN CED IF ABLE.
--- NOTE | 2020-03-15 18:50 | NUR ---
RT NOTIIFED. EXTUBATED TO 4L VIA NC. VSS. WILL CONT POC.
--- NOTE | 2020-03-15 19:47 | NUR ---
PT RECEIVED WITH EYES OPEN AND ALERT. COMPLAINS OF PAIN WITH PRN MORPHINE GIVEN BY OUT GOING NURSE BEFORE REPORT WAS GIVEN. PT WITH MIDSTERNAL INCISION DRESSING C/D/I. SUBSTERNAL DRESSING C/D/I WITH CHEST TUBES X2, CJ DRAIN, AND TPM WIRES. RIGHT LOWER EXTREMITY DRESSING C/D/I, HARVEST SITE. SPENCE PATENT WITH CLEAR YELLOW URINE NOTED. COMPLAINED OF NAUSEA WITH PRN ZOFRAN GIVEN PER MAR. RESTING WITH EYES CLOSED AND CHEST RISING WITH NO S/S OF DISTRESS NOTED. CALL LIGHT IN REACH. WILL CONTINUE TO OBSERVE.
--- NOTE | 2020-03-15 21:34 | NUR ---
PT TOLERATING ICE CHIPS. IS 250 AND COMPLAINS OF SPASM ACROSS ABDOMEN WITH BREATHING. AT TIMES SPONTANEOUS SPASMS OCCUR. OVER ALL PT RESTING COMFORTABLE. PT MADE AWARE OF PLAN FOR DANGLING AND GETTING UP TO CHAIR IN MORNING. PT QUESTIONS ANSWERED AND PT STATES UNDERSTANDING.
--- NOTE | 2020-03-15 23:53 | NUR ---
PT DRINKING SMALL SIPS OF WATER. COMPLAINS OF NAUSEA.
[2020-03-16] VITALS (39 sets, daily range): BP systolic 92–151; BP diastolic 54–72; Ht 182.9 cm; Wt 95.0 kg
[2020-03-16 05:50] LABS: HEMATOCRIT 32.5 % (42.0-54.0); HEMOGLOBIN 10.3 g/dL (13.5-17.5); MCH 26.1 pg (26.0-34.0); MCHC 31.7 g/dL (31.0-37.0); MCV 82.5 fL (80.0-100.0); MEAN PLATELET VOLUME 8.5 fL (7.4-10.4); RBC 3.94 10x6/uL (4.20-6.10); RDW 15.9 % (11.5-14.5); WBC 10.8 10x3/uL (4.8-10.8)
[2020-03-16 06:09] LABS: ALBUMIN 3.1 g/dL (3.4-5.0); ANION GAP 12.3 mmol/L (8-16); BILIRUBIN - TOTAL 0.74 mg/dL (0.2-1.3); CALCIUM 7.9 mg/dL (8.5-10.1); CARBON DIOXIDE 25.5 mmol/L (21.0-32.0); CREATININE - SERUM 1.2 mg/dL (0.6-1.3); POTASSIUM - SERUM 4.8 mmol/L (3.5-5.1); PROTEIN - SERUM 5.8 g/dL (6.4-8.2)
--- NOTE | 2020-03-16 07:29 | NUR ---
Shift report received. Up in chair. Rates pain 8/10 to incision and back. On 1L O2 via NC. Midsternal incision C/D/I. CT x 2 subternal to 20cm suction. Intermittent air leak noted. Wilbert drain in place. RIJ with plasmolyte at 100ml/hr and zinacef at 12.8ml/hr. Right radial zayda in place. Truong catheter in place with clear yellow urine. RLE harvest sites open to air. LUPE hose on both LE. Safety measures in place. Will continue to monitor.
--- NOTE | 2020-03-16 08:00 | NUR ---
Right radial A-line Dc'd at this time per order.
--- NOTE | 2020-03-16 08:13 | NUR ---
Pt hyperventilating at this time. States he is in a lot of pain. O2 sat in 80s. O2 Increased to 5L via NC.
--- NOTE | 2020-03-16 08:24 | NUR ---
Blood glucose 223. Insulin drip initiated. Dr. Paul at bedside. Ordered Xanax 0.25mg po PRN if it's okay with Dr. Steiner. Pt starting to calm down. Will continue to monitor.
--- NOTE | 2020-03-16 09:05 | NUR ---
O2 sat 97% at this time. O2 decreased to 3l NC. Will continue to monitor.
--- NOTE | 2020-03-16 09:30 | NUR ---
Repositioned in chair at this time.
--- NOTE | 2020-03-16 11:11 | OP ---
PATIENT NAME: ESTEPHANIE GILES MEDICAL RECORD: [id number] :56 LOCATION:D.CVI D.CV03 ADMISSION DATE:03/15/20 SURGEON: VAMSI ARTHUR MD DATE OF OPERATION: 03/15/2020 SURGEON: Vamsi Arthur MD PROCEDURE PERFORMED: 1. Coronary artery bypass graft times 4 (left internal mammary to LAD, reverse saphenous vein graft from aorta to ramus intermedius from the side of vein graft to the first diagonal and from aorta to posterior descending artery). 2. Endoscopic saphenous vein harvest. PREOPERATIVE DIAGNOSIS: Coronary artery disease and recent CVA. POSTOPERATIVE DIAGNOSIS: Coronary artery disease and recent CVA plus mild aortic insufficiency and mildly enlarged ascending aorta. ANESTHESIA: General endotracheal anesthesia. ESTIMATED BLOOD LOSS: Total cardiopulmonary bypass with 1 packed red blood cell and Cell Saver retransfusion. COMPLICATIONS: None. SPECIMENS: None. CONDITION: Stable. DISPOSITION: CV ICU. OPERATIVE FINDINGS: 1. Transesophageal echocardiography with good contractility, mild left ventricular hypertrophy, 1+ aortic insufficiency, no left ventricular end diastolic dilatation. 2. Intraoperatively 4.2 cm ascending aorta with normal wall thickness. 3. Good quality left internal mammary artery. The LAD was 2.0 mm with severe disease. 4. Two good segments of vein used for the ramus and PDA grafts and a smaller caliber portion used for diagonal with the proximal end as an end-to-side to the ramus graft. Diagonal 1.75 mm with severe disease, ramus 2.0 mm with intramyocardial vessel distally, PDA 1.75 mm, LAD 2.0 mm with severe disease, right coronary severely calcified obtuse marginal small and not grafted. INDICATION: Multivessel coronary artery disease recovery from recent CVA. DESCRIPTION OF PROCEDURE: The patient was brought to the operating suite. General anesthesia was obtained, the patient prepped and draped. Greater saphenous vein harvested endoscopically, right lower extremity. Side branch divided with electrocautery. The vessel was ligated proximally and distally and removed. Side branches were clipped or tied and pin sites were oversewn. Median sternotomy incision was made. Subcutaneous tissue divided with electrocautery. The sternum was divided with a saw. The left hemisternum was elevated. Left pleural cavity was entered. Left internal mammary artery and OPERATIVE REPORT [id number] ESTEPHANIE GILES vein was taken down as a pedicle graft. Sternal retractor was placed. Pericardium was opened. Heparin was given. Aorta was cannulated. Dual stage venous cannula was inserted. The internal mammary was clipped. Activated clotting time was appropriately elevated. The patient was placed on cardiopulmonary bypass. The sites for distal anastomoses were selected. Antegrade cardioplegia cannula was inserted. The patient was cooled. Crossclamp was placed. Cardioplegia was given antegrade and this was repeated at 15 to 20 minute intervals including down the completed vein grafts. Distal anastomoses were performed in standard technique. Proximal anastomosis with single cross-clamp technique, end-to-side anastomosis of vein-vein. Flow restored. Proximal and distal anastomotic site inspected for bleeding. Good Doppler signal in the internal mammary. The patient was fully rewarmed, weaned from cardiopulmonary bypass and stable. The patient was decannulated. The cannula sites were oversewn. Protamine was given. Thorough irrigation was undertaken. Graft lay appropriately. Hemostasis was assured. A drain was placed in the mediastinum, one with the tip in the right pleural cavity and in the left pleural cavity and ventricular pacing wires were placed. Pericardial fat was loosely reapproximated in the midline. Internal mammary harvest site inspected for bleeding. The left chest was evacuated and irrigated. Sternal closed wires. Fascia was closed, subcutaneous tissue closed, skin closed, and leg was closed in 2 layers. Dermabond was used on the incision. Needle and sponge counts were correct and the patient was taken to ICU in stable condition. TRANSINT:[id number] Voice Confirmation ID: [id number] DOCUMENT ID: [id number] VAMSI ARTHUR MD at 1111 CC: MARIA TERESA PHILLIPS and GIULIANA SALGADO MD [id number] DICTATION DATE: 03/15/20 1406 GEOLOGICAL SCIENCE TEACHER: 03/16/20 0101 ADM IN [address] [place] [address]
--- NOTE | 2020-03-16 12:45 | NUR ---
Assisted back to bed. Tolerated well. No further needs at this time. Will continue to monitor.
--- NOTE | 2020-03-16 15:00 | NUR ---
No acute changes from previous assessment. Continues on 2L O2 via NC. VSS. Temp 37.5 degrees celsius. Pulls 750-1000 on I.S. Needs constant encouragement to perform I.S. excersises. No further needs at this time. Will continue to monitor.
--- NOTE | 2020-03-16 15:00 | NUR ---
Spoke with Darcy GRIMES regarding xanax. She said it was okay to start xanax per Dr. Steiner.
--- NOTE | 2020-03-16 18:20 | NUR ---
Blood glucose 144. Insulin drip on hold at this time per protocol.
[2020-03-17] VITALS (31 sets, daily range): BP systolic 97–172; BP diastolic 55–89
[2020-03-17 06:19] LABS: HEMATOCRIT 29.1 % (42.0-54.0); HEMOGLOBIN 9.3 g/dL (13.5-17.5); MCH 26.4 pg (26.0-34.0); MCV 82.7 fL (80.0-100.0); MEAN PLATELET VOLUME 8.3 fL (7.4-10.4); RBC 3.52 10x6/uL (4.20-6.10); RDW 16.2 % (11.5-14.5); WBC 11.2 10x3/uL (4.8-10.8)
[2020-03-17 07:09] LABS: BILIRUBIN - TOTAL 0.59 mg/dL (0.2-1.3); CALCIUM 8.1 mg/dL (8.5-10.1); CARBON DIOXIDE 27.5 mmol/L (21.0-32.0); CREATININE - SERUM 1.2 mg/dL (0.6-1.3); POTASSIUM - SERUM 4.5 mmol/L (3.5-5.1); PROTEIN - SERUM 6.1 g/dL (6.4-8.2)
--- NOTE | 2020-03-17 07:35 | NUR ---
DR ARTHUR CALLED TO REPORT PT BEING TACHY WITH AFIB AFTER GETTING UP IN CHAIR. PT PLACED BACK IN BED, AND RECEIVED ORDERS FOR AMIODARONE 150MG BOLUS AND FOLLOW AMIODARONE PROTOCOL AND REPORT IF NO CHANGE IN 20 MIN. BOLUS GIVEN AND 1MG FOR 6 HRS STARTED. HR RATE SLOWING AT THIS TIME.
--- NOTE | 2020-03-17 08:18 | TEE ---
PATIENT:ESTEPHANIE GILES MEDICAL RECORD: [id number] LOCATION:[place] [address] AGE OF PATIENT: 59 ADMISSION DATE: 03/15/20 SEX: M REFERRING PHYSICIAN: INTERPRETING PHYSICIAN: GIULIANA SALGADO MD TRANSESOPHAGEAL ECHOCARDIOGRAM Date: 03/15/20 MIGUEL CHARGE Y INDICATIONS: CABG PREMEDICATIONS: PATIENT'S RESPONSE PROCEDURE DOPPLER MEASUREMENTS: LVIT LA PA RA LVOT RVOT Asc. Ao AV Gradient Peak AV Mean AV Area MV Gradient Peak MV Mean MV Area INTERPRETATION: Doppler: 2-D: COLOR FLOW DOPPLER NORMAL SALINE STUDY: MISCELLANOUS: DIAGNOSIS: PLAN: Cutter V Groove:3 Dr. Pennington Bottler Helper: Kapil DE LEÓN COMMENTS: DATE OF SERVICE: 03/16/2020 PROCEDURE: Intraoperative MIGUEL. Preop shows normal LV wall motion and wall thickening. EF is greater than or equal to 55%. Aortic valve is tricuspid with good valve excursion. Mild AI. Left atrium appears normal. Mitral valve appears normal. Trivial MR. Postoperatively, a good LV function and wall thickening in all cardiac segments. EF is 55% or better. Aortic valve is still with good valve excursion. Trace TRANSESOPHAGEAL ECHOCARDIOGRAM REPORT [id number] ESTEPHANIE GILES to mild AI. Left atrium appears normal. Mitral valve appears normal. Trivial MR. TRANSINT:[id number] Voice Confirmation ID: [id number] DOCUMENT ID: [id number] at 0818 CC: [id number] DICTATION DATE: 03/16/20 1618 VP ANCILLARY: 03/17/20 0504 ADM IN [place] [id number] [place] [address]
--- NOTE | 2020-03-17 10:06 | NUR ---
PATIENT CONVERTED TO SR AT RATE OF 90. BP 104/63 (73) IN ROOM WITH PATIENT. CALL LIGHT WITHIN REACH, BED IN LOW POSITION, AND WILL CONTINUE TO MONITOR.
--- NOTE | 2020-03-17 11:23 | NUR ---
Nutrition Follow-up: POD 2 CABG. Sleeping soundly at time of visit this AM; RD did not disturb. Poor PO intake recorded yesterday. Diet: Clear Liquid -> Diabetic Wt: 230# (03/17) Labs noted: Na 135, Glu 158, Ca 8.1, Alb 3.0 Meds noted: Glucophage, Protonix, Senokot, Colace, Humulin -Rec ADAT as medically feasible. -Encourage PO intake and honor food preferences within diet restrictions. -Monitor wt. -RD following.
--- NOTE | 2020-03-17 12:10 | NUR ---
PATIENT REQUESTED TO STAND AT BEDSIDE DUE TO HIS COCCYX HURTING ONCE WE STOOD FOR A FEW MINUTES HE SAID HE WOULD GET IN THE CHAIR IF IT WAS OK.
--- NOTE | 2020-03-17 18:52 | NUR ---
DR. ARTHUR NOTIFIED OF AFIB WITH RVR. NEW ORDER RECEIVED AND NOTIFY HIM IF RATE DOES NOT DECREASE.
--- NOTE | 2020-03-17 20:15 | NUR ---
DR ARTHUR CALLED AND REPORT PT CONTINUES UNCONTROLLED AFIB WITH HR 120 TO 140 AT 1950. ORDER RECEIVED FOR 2.5MG LOPRESSOR IV. MEDICATION GIVEN.
--- NOTE | 2020-03-17 21:03 | NUR ---
DR ARTHUR CALLED DUE TO CONTINUED AFIB. ORDER RECEIVED TO GIVE 150MG BOLUS AMIODARONE AND RESTART AMIODARONE PROTOCOL AT 2039. 2049 WHEN HANGING BOLUS PT CONVERTED BOLUS NOT STARTED AND CALLED DR ARTHUR AND REPORTED. ORDERS RECEIVED DO NOT GIVE BOLUS, RESTART AMIODARONE AT 1MG FOR 6HRS AND CHANGE TO 0.5MG. CHECK K AND MAG LEVELS. CALL WITH RESULTS.
[2020-03-17 21:44] LABS: MAGNESIUM - SERUM 1.6 mg/dL (1.8-2.4); POTASSIUM - SERUM 4.1 mmol/L (3.5-5.1)
--- NOTE | 2020-03-17 21:55 | NUR ---
DR ARTHUR CALLED WITH RESULTS OF K AND MAG. ORDERS TO GIVE 2GM MAG IN 200ML D5W OVER 6HRS. GIVING TWO 1GM 100ML BAGS OVER 6HRS.
[2020-03-18] VITALS (40 sets, daily range): BP systolic 95–149; BP diastolic 42–85
--- NOTE | 2020-03-18 00:51 | NUR ---
DR ARTHUR CALLED AND REPORT PT BACK INTO AFIB WITH HR TO 140 AFTER COUGH. RECEIVED ORDER FOR AMIODARONE 150 BOLUS AND IF CONTINUES GIVE 2.5 MG LOPRESSOR IV.
[2020-03-18 06:07] LABS: HEMATOCRIT 27.5 % (42.0-54.0); HEMOGLOBIN 8.9 g/dL (13.5-17.5); MCH 26.6 pg (26.0-34.0); MCHC 32.4 g/dL (31.0-37.0); MCV 82.1 fL (80.0-100.0); RBC 3.35 10x6/uL (4.20-6.10); WBC 10.2 10x3/uL (4.8-10.8)
--- NOTE | 2020-03-18 06:10 | NUR ---
ON UNIT WITH UPDATE GIVEN. PT SLEEPING AND SHE DID DID NOT WANT TO WAKE HIM.
[2020-03-18 06:32] LABS: ALBUMIN 2.8 g/dL (3.4-5.0); BILIRUBIN - TOTAL 0.29 mg/dL (0.2-1.3); CALCIUM 8.3 mg/dL (8.5-10.1); CARBON DIOXIDE 29.3 mmol/L (21.0-32.0); CREATININE - SERUM 1.1 mg/dL (0.6-1.3); POTASSIUM - SERUM 4.3 mmol/L (3.5-5.1); PROTEIN - SERUM 6.5 g/dL (6.4-8.2)
[2020-03-18 06:36] LABS: MAGNESIUM - SERUM 2.2 mg/dL (1.8-2.4)
--- NOTE | 2020-03-18 07:16 | NUR ---
, GIVEN UPDATE ON PT. WANTS PT UP TO CHAIR.
--- NOTE | 2020-03-18 13:00 | NUR ---
PATIENT RETURNED TO BED WITH MODERATE ASSIST NEEDED.
--- NOTE | 2020-03-18 13:47 | NUR ---
DR. PHILLIPS IN TO SEE PT AT THIS TIME.
--- NOTE | 2020-03-18 14:00 | NUR ---
RECEIVED REPORT ON PATIENT AND ASSUMED CARE. VSS. NO NEEDS AT THIS TIME.
--- NOTE | 2020-03-18 14:45 | NUR ---
DR. ARTHUR AT ROOM UPDATED AND EXAMINES PATIENT. REPLACES DUAL CHAMBER CHEST TUBE WITH SINGLE CHAMBER CHEST TUBE. TPM WIRES CURLED AND DISCONNECTED, DRESSING CHANGED. EMPTIED 60 CC FROM CJ DRAIN, BULB COMPRESSED.
--- NOTE | 2020-03-18 15:00 | NUR ---
REASSESSMENT COMPLETED. ASSISTED IN CHANGING POSITION IN BED. VSS.
--- NOTE | 2020-03-18 17:02 | NUR ---
PATIENT IN A-FIB HR 126, UP TO 141, DR. ARTHUR NOTIFIED, BP 127/83 (92), ORDERS METOPROLOL 2.5 MG IVP AND SOTALOL 80 MG PO.
[2020-03-19] VITALS (24 sets, daily range): BP systolic 95–128; BP diastolic 57–75
[2020-03-19 06:17] LABS: HEMATOCRIT 27.2 % (42.0-54.0); HEMOGLOBIN 8.7 g/dL (13.5-17.5); MCH 26.2 pg (26.0-34.0); MCV 81.9 fL (80.0-100.0); MEAN PLATELET VOLUME 8.1 fL (7.4-10.4); RBC 3.32 10x6/uL (4.20-6.10); RDW 15.8 % (11.5-14.5)
[2020-03-19 06:21] LABS: WBC 7.4 10x3/uL (4.8-10.8)
[2020-03-19 06:43] LABS: ALBUMIN 2.7 g/dL (3.4-5.0); BILIRUBIN - TOTAL 0.45 mg/dL (0.2-1.3); CALCIUM 8.6 mg/dL (8.5-10.1); CARBON DIOXIDE 29.9 mmol/L (21.0-32.0); CREATININE - SERUM 1.1 mg/dL (0.6-1.3); POTASSIUM - SERUM 3.9 mmol/L (3.5-5.1); PROTEIN - SERUM 6.5 g/dL (6.4-8.2)
--- NOTE | 2020-03-19 09:06 | NUR ---
DR ARTHUR HERE THIS AM. [facility] ORDERED.
--- NOTE | 2020-03-19 09:47 | NUR ---
Nutrition Follow-up: POD 4 CABG. Pt reports "not eating much because it hurts". C/o nausea without vomiting. -BM; +flatus. Per chart, ate ~80% of dinner last night. Reports eating solids this AM. Diet: Clear Liquid -> Diabetic Wt: 223# (03/19) Labs noted: Na 135, Glu 120, Alb 2.7 Meds noted: Glucophage, Protonix, Senokot, Colace -Encourage PO intake and honor food preferences within diet restrictions. -Monitor wt. -RD following.
--- NOTE | 2020-03-19 10:25 | NUR ---
dr vega here. dcd ct.ms given.
--- NOTE | 2020-03-19 14:00 | NUR ---
Care assumed. Assisted pt back to bed. Call light in reach. On room air. No further needs at this time. Will continue to monitor.
--- NOTE | 2020-03-19 15:30 | NUR ---
Pt appears to be in A-fib controlled with hr in 80s.
--- NOTE | 2020-03-19 17:50 | NUR ---
HR fluctuating from controlled to uncontrolled afib. Hr 99-111. Dr. Steiner notified. No new order received at this time. Notify Dr. Steiner if HR is greater than 120.
--- NOTE | 2020-03-19 19:00 | NUR ---
REPORT RECEIVED. RECEIVED PATIENT UP IN BEDSIDE CHAIR. AWAKE, ALERT AND ORIENTED X 4. AMBULATED TO BATHROOM WITH SBAX 1. GAIT STEADY. ASSISTED TO BED. CHOCO WELL. ASSESSMENT COMPLETED PER FLOW SHEET WITH NO ACUTE DISTRESS OBSERVED. VSS. CONT CONTROLLED AFIB ON MONITOR. CALL LIGHT IN EASY REACH AND ABLE TO UTILIZE TO MAKE NEEDS KNOWN. USING INCENTIVE SPIROMETER INSTRUCTED. WILL CONTINUE CURRENT POC
--- NOTE | 2020-03-19 20:54 | MORECARE ---
CASE MANAGEMENT DISCHARGE SUMMARY PATIENT: ESTEPHANIE GILES UNIT: [id number] ADM DATE: 03/15/20 AGE: 59 : 56 SEX: M ROOM/BED: D.[facility] AUTHOR: REBA,DOC PHYSICIAN: REFERRING PHYSICIAN: JACKELINE ARTHUR MD DATE OF SERVICE: 03/19/20 Discharge Plan Patient Name: ESTEPHANIE GILES Facility: [facility]:[place] : 1960 Planned Disposition: Home Anticipated Discharge Date: Discharge Date: Expected LOS: Initial Reviewer: [email or web address] Initial Review Date: 03/15/2020 Generated: 03/19/20 9:54 pm Comments DCP- Discharge Planning Updated by [email or web address]: Alondra Merino on 03/19/20 7:[address] Patient Name: ESTEPHANIE GILES Admission Status: Elective Accout number: [id number] Admission Date: 03-15-2020 : 1960 Admission Diagnosis:ATHSCL HEART DISEASE OF [place] CORONARY ARTERY W/O ANG Attending: JACKELINE ARTHUR Current LOS: 4 Anticipated DC Date: Planned Disposition: Home Primary Insurance: [employer] Discharge Planning Comments: CM met with patient to complete initial dc planning assessment. CM educated patient on the CM role and verbal consent given by patient to complete assessment. Patient lives at home with family. Patient is independent. At discharge patient plans to return home and feels this is a safe discharge. CM discussed availability of home health, rehab services, and medical equipment. Patient will have family to transport home. Patient denied known discharge needs at this time. CM will continue to follow and will assist as needed with dc plans/needs. Senior Maintenance Machinist: Alondra Merino DCPIA - Discharge Planning Initial Assessment Updated by [email or web address]: Alondra Merino on 03/19/20 8:50 pm * Is the patient Alert and Oriented? Yes * How many steps to enter\exit or inside your home? * PCP YI * Pharmacy [facility] * Preadmission Environment Home with Family * ADLs Independent * Equipment None * List name and contact numbers for known caregivers / representatives who currently or will assist patient after discharge: CORRINA GILES - - [phone] * Verbal permission to speak to the caregivers and representatives has been obtained from the patient. Yes * Community resources currently utilized None * Additional services required to return to the preadmission environment? No * Can the patient safely return to the preadmission environment? Yes * Has this patient been hospitalized within the prior 30 days at any hospital? No Patient Name: ESTEPHANIE GILES Page [id number] at 2053 All edits/amendments must be made on the electronic document DICTATION DATE: 03/19/202053 OSTEOLOGY TEACHER: ALIYAH 03/19/202053 RPT#: [id number] DC DATE: STATUS: ADM IN [facility] [address] [place] [address] END OF REPORT
[2020-03-20] VITALS (23 sets, daily range): BP systolic 98–142; BP diastolic 46–74
[2020-03-20 06:01] LABS: HEMOGLOBIN 8.6 g/dL (13.5-17.5); MCH 26.1 pg (26.0-34.0); MCHC 31.9 g/dL (31.0-37.0); MCV 82.1 fL (80.0-100.0); RBC 3.29 10x6/uL (4.20-6.10); RDW 16.2 % (11.5-14.5); WBC 7.3 10x3/uL (4.8-10.8)
[2020-03-20 06:22] LABS: ALBUMIN 2.7 g/dL (3.4-5.0); ANION GAP 12.3 mmol/L (8-16); BILIRUBIN - TOTAL 0.59 mg/dL (0.2-1.3); CARBON DIOXIDE 27.4 mmol/L (21.0-32.0); CREATININE - SERUM 1.1 mg/dL (0.6-1.3); POTASSIUM - SERUM 3.7 mmol/L (3.5-5.1); PROTEIN - SERUM 6.5 g/dL (6.4-8.2)
--- NOTE | 2020-03-20 07:35 | NUR ---
Shift report received. Pt up in chair. On room air. vss. Pain 5/10 at incision site. Midsternal dressing c/d/i. Substernal rosario drain with dressin c/d/i. RIJ saline lock. LUPE Vázquez on bilateral LE. Continues on controlled a-fib. Safety measures in place. Will continue to monitor.
--- NOTE | 2020-03-20 09:49 | NUR ---
Ambulated with physical therapy about 150ft. Tolerated well.
--- NOTE | 2020-03-20 11:27 | NUR ---
Ambulated to bathroom at this time.
--- NOTE | 2020-03-20 14:49 | NUR ---
Ambulated with physical therapy. Rates pain 6/10 at incision site. Percocet 5mg tab given per orders. Spouse at bedside. Will continue to monitor.
--- NOTE | 2020-03-20 19:00 | NUR ---
RECIVED BEDSIDE SHIFT REPORT. PT IS SITTING UP IN CHAIR A&OX4. VOICES"IM DOING GOOD RIGHT NOW". NO C/O OF PAIN OR NEEDS VOICED. HIS RIGHT IJ IS CDI. CJ DRAIN INTACT AND COMPRESSED. WILL PERFORM FULL ASSESSMENT AND DOC IN FLOWSHEET. HE IS ORIENTED TO USE OF CALLLIGHT. I ASKED IF HE IS USING HIS IS AND HE VERBALIZED "YES, I GET UP TO ABOUT 1500". WHEELCHAIR WHEELS ARE LOCKED. BEDSIDE TABLE IS WITHIN REACH. CALL LIGHT WITHIN REACH. WILL CONTINUE TO MONITOR
--- NOTE | 2020-03-20 21:32 | NUR ---
ASSISTED PT UP BY STAND ASSIST ONLY TO BR. HE VOIDED MEDIUM AMOUNT OF YELLOW URINE. BACK TO CHAIR SAFELY. HE VOICED"I THINK I WILL SIT UP ALITTLE LONGER. VSS. WHEN ASKED ABOUT PAIN HE VOICED"I HURT ALITTLE BUT I WANT TO WAIT ALITTLE CLOSER TO WHEN I GO TO SLEEP TO TAKE MY PAIN PILL". I ACKNOWLEDGE REQUEST. PROVIDED HIM WITH FRESH WATER AND SUGAR FREE JELLO REQUESTED TO TAKE WITH SCHEDULED MEDS. CHAIR WHEELS ARE LOCKED. CALL LIGHT IS WITHIN REACH. WILL CONTINUE TO MONITOR
[2020-03-21] VITALS (24 sets, daily range): BP systolic 98–145; BP diastolic 52–77
--- NOTE | 2020-03-21 00:27 | NUR ---
PT USED CALL LIGHT AND VOICED"I NEED TO GO TO THE BR". STAND BY ASSIST TO BATHROOM, HE VOIDED MEDIUM AMOUNT OF YELLOW URINE AND BACK TO BED SAFELY. HE VOICES NO C/O OF PAIN OR NEEDS. BED IS LOW,SIDE RAISLX2,CALL LIGHT WITHIN REACH. WILL CONTINUE TO MONITOR
[2020-03-21 05:41] LABS: HEMOGLOBIN 8.8 g/dL (13.5-17.5); MCH 26.8 pg (26.0-34.0); MCHC 32.6 g/dL (31.0-37.0); MCV 82.3 fL (80.0-100.0); MEAN PLATELET VOLUME 7.6 fL (7.4-10.4); RBC 3.28 10x6/uL (4.20-6.10); RDW 16.2 % (11.5-14.5); WBC 8.4 10x3/uL (4.8-10.8)
--- NOTE | 2020-03-21 05:57 | NUR ---
CHANGED RIGHT IJ CENTRAL LINE DRESSING AT THIS TIME WHILE MAINTAING STERIL FIELD. PT TOLERATED WELL. ALSO CHANGED SUB-STERNAL DRESSING AND APPLIED NEW BIO PATCH AROUND PACER WIRES WHILE MAINTIANING STERIL FIELD. PT ALSO TOLERATED WELL WITH NO C/O OF PAIN. HIS VSS. BED IS LOW,SIDE RAISLX2,CALL LIGHT WITHIN REACH. WILL CONTINUE TO MONITOR
[2020-03-21 06:06] LABS: CARBON DIOXIDE 27.5 mmol/L (21.0-32.0); CREATININE - SERUM 1.1 mg/dL (0.6-1.3); POTASSIUM - SERUM 3.7 mmol/L (3.5-5.1)
[2020-03-21 06:07] LABS: ALBUMIN 2.8 g/dL (3.4-5.0); ANION GAP 11.2 mmol/L (8-16); BILIRUBIN - TOTAL 0.52 mg/dL (0.2-1.3); CALCIUM 8.7 mg/dL (8.5-10.1); PROTEIN - SERUM 6.6 g/dL (6.4-8.2)
--- NOTE | 2020-03-21 06:54 | NUR ---
stand by assist as pt got up to BR and voided medium amount of yellow urine. up to chair for am. no c/o or needs at this time. provided him with warm blanket. chair wheels are locked. call light and bedside table within reach.
--- NOTE | 2020-03-21 15:16 | NUR ---
PT AMB 500 FT. HR [address] ARTHUR. NO NEW ORDERS.
[2020-03-22] VITALS (24 sets, daily range): BP systolic 103–141; BP diastolic 53–85
[2020-03-22 03:25] LABS: HEMATOCRIT 26.6 % (42.0-54.0); HEMOGLOBIN 8.5 g/dL (13.5-17.5); MCH 26.3 pg (26.0-34.0); MCV 82.4 fL (80.0-100.0); MEAN PLATELET VOLUME 7.6 fL (7.4-10.4); RBC 3.23 10x6/uL (4.20-6.10); RDW 16.4 % (11.5-14.5); WBC 9.2 10x3/uL (4.8-10.8)
[2020-03-22 03:41] LABS: ALBUMIN 2.8 g/dL (3.4-5.0); ANION GAP 8.9 mmol/L (8-16); BILIRUBIN - TOTAL 0.55 mg/dL (0.2-1.3); CALCIUM 8.7 mg/dL (8.5-10.1); CARBON DIOXIDE 28.3 mmol/L (21.0-32.0); CREATININE - SERUM 1.2 mg/dL (0.6-1.3); MAGNESIUM - SERUM 1.6 mg/dL (1.8-2.4); POTASSIUM - SERUM 4.2 mmol/L (3.5-5.1); PROTEIN - SERUM 6.6 g/dL (6.4-8.2)
--- NOTE | 2020-03-22 07:00 | NUR ---
REPORT RECEVIED FROM THE OFF GOING RN. SEE ASSESSMENT IN THE PTS FLOW SHEET. PT SITTING OOB IN HIS BEDSIDE CHAIR. DENIES PAIN. PT INSTRUCTED TO USE HIS IS 10X'S/H. PT PULLS ABOUT 2200 ON HIS IS. CALL LIGHT IN REACH. WILL CONT POC.
--- NOTE | 2020-03-22 07:50 | NUR ---
DR ARTHUR IN THE UNIT. PLAN FOR DISCHARGE.
--- NOTE | 2020-03-22 07:51 | NUR ---
BREAKFAST TRAY PROVIDED FOR THE PT.
--- NOTE | 2020-03-22 09:53 | NUR ---
Nutrition Follow-up: POD 7 CABG. Pt reports that he not really hungry but has been eating. Diet: Diabetic PO intake: 50-100% Wt: 218# (03/22) Last BM: 03/22 Labs noted: Glu 128, Mg 1.6, Alb 2.8 Meds noted: KDur, Humulin, Glucophage, Senokot, Colace, Protonix -Encourage PO intake and honor food preferences within diet restrictions. -Monitor wt. -RD following.
--- NOTE | 2020-03-22 10:30 | NUR ---
PT AMBULATED WITH PHYSCIAL THERAPY ABOUT 500 FEET WITH A SLOW BUT STEADY GAIT. PT REMIANS IN AFIB RATE 80'S.
--- NOTE | 2020-03-22 12:17 | NUR ---
CVL DC'D WITH THE CATHETER TIP INTACT.
[2020-03-23] VITALS (7 sets, daily range): BP systolic 101–124; BP diastolic 61–78
[2020-03-23 04:35] LABS: HEMOGLOBIN 9.3 g/dL (13.5-17.5); MCH 26.4 pg (26.0-34.0); MCHC 32.1 g/dL (31.0-37.0); MCV 82.4 fL (80.0-100.0); MEAN PLATELET VOLUME 7.8 fL (7.4-10.4); RBC 3.52 10x6/uL (4.20-6.10); RDW 16.9 % (11.5-14.5); WBC 9.3 10x3/uL (4.8-10.8)
[2020-03-23 05:12] LABS: ANION GAP 13.2 mmol/L (8-16); BILIRUBIN - TOTAL 0.52 mg/dL (0.2-1.3); CALCIUM 8.9 mg/dL (8.5-10.1); CREATININE - SERUM 1.3 mg/dL (0.6-1.3); POTASSIUM - SERUM 4.2 mmol/L (3.5-5.1); PROTEIN - SERUM 7.3 g/dL (6.4-8.2)
--- NOTE | 2020-03-23 06:19 | NUR ---
patient in chair. hr goes to uncontrolled a-fib when ambulating to and from bathroom and chair. goe back to controlled when patient lays down or sits.
--- NOTE | 2020-03-23 08:56 | NUR ---
0700 REPORT RECIEVED AND CARE ASSUMED OF PATIENT.. SEE FLOW SHEET FOR ASHIFT ASSESMENT FINDINGS.. PT IS OOB SITTING IN CHAIR AT THIS TIME.. 0830 MEDS GIVEN AND BREAK FAST IS SERVED.. CALLED AND UPDATE IS GIVEN..
[2020-03-23] MEDS ORDERED: BETAPACE 80 MG80 MG PO (10:40)
[2020-03-23] MEDS ORDERED: PERCOCET 5-3251 TAB PO (11:44)
--- NOTE | 2020-03-23 13:28 | NUR ---
1200 DR ARTHUR IN TO SEE PATIENT AND DC OBTAINED.. BS DONE AND INSULIN COVER LUNCH SERVED AND PATIENT EATING.. 1230 AT BEDSIDE .. 1300 FAUSTO ARTHUR IN AND DISCHARGE TEACHING DONE BY HER.. 1330 DC HOME WITH VIA WHEELCHAIR IN PVT CAR
--- NOTE | 2020-03-24 09:17 | MORECARE ---
CASE MANAGEMENT DISCHARGE SUMMARY PATIENT: ESTEPHANIE GILES UNIT: [id number] ADM DATE: 03/15/20 AGE: 59 : 56 SEX: M ROOM/BED: D[facility] AUTHOR: REBA,DOC PHYSICIAN: REFERRING PHYSICIAN: JACKELINE ARTHUR MD DATE OF SERVICE: 03/24/20 Discharge Plan Patient Name: ESTEPHANIE GILES Facility: [facility]:[place] : 1960 Planned Disposition: Home Anticipated Discharge Date: Discharge Date: 03/23/2020 Expected LOS: Initial Reviewer: [email or web address] Initial Review Date: 03/15/2020 Generated: 03/24/20 10:16 am Comments DCP- Discharge Planning Updated by [email or web address]: Alondra Merino on 03/19/20 7:[address] Patient Name: ESTEPHANIE GILES Admission Status: Elective Accout number: [id number] Admission Date: 03-15-2020 : 1960 Admission Diagnosis:ATHSCL HEART DISEASE OF [place] CORONARY ARTERY W/O ANG Attending: JACKELINE ARTHUR Current LOS: 4 Anticipated DC Date: Planned Disposition: Home Primary Insurance: [employer] Discharge Planning Comments: CM met with patient to complete initial dc planning assessment. CM educated patient on the CM role and verbal consent given by patient to complete assessment. Patient lives at home with family. Patient is independent. At discharge patient plans to return home and feels this is a safe discharge. CM discussed availability of home health, rehab services, and medical equipment. Patient will have family to transport home. Patient denied known discharge needs at this time. CM will continue to follow and will assist as needed with dc plans/needs. Delivery Person: Alondra Merino DCPIA - Discharge Planning Initial Assessment Updated by [email or web address]: Alondra Merino on 03/19/20 8:50 pm * Is the patient Alert and Oriented? Yes * How many steps to enter\exit or inside your home? * PCP [place] * Pharmacy [facility] * Preadmission Environment Home with Family * ADLs Independent * Equipment None * List name and contact numbers for known caregivers / representatives who currently or will assist patient after discharge: CORRINA GILES - - [phone] * Verbal permission to speak to the caregivers and representatives has been obtained from the patient. Yes * Community resources currently utilized None * Additional services required to return to the preadmission environment? No * Can the patient safely return to the preadmission environment? Yes * Has this patient been hospitalized within the prior 30 days at any hospital? No Last DP export: 03/19/20 7:54 p Patient Name: ESTEPHANIE GILES Page [id number] at 0917 All edits/amendments must be made on the electronic document DICTATION DATE: 03/24/20915 CASTING MACHINE ADJUSTER: ALIYAH 03/24/20915 RPT#: [id number] DC DATE:03/23/20 STATUS: DIS IN [facility] [address] [place] [address] END OF REPORT
== END 2020-03-23 14:00 | disposition home or self-care (01) | DRG 166 ==
LOC: D.CVICU 05:00 → D.SDCHOLD 05:00 → D.CVICU 12:06
PROVIDERS: Internal Medicine Cardiovascular Disease; ADMIT Thoracic Surgery (Cardiothoracic Vascular Surgery); ATTEND Thoracic Surgery (Cardiothoracic Vascular Surgery)
PROC: 021209W Bypass Coronary Artery, Three Arteries from Aorta with Autologous Venous Tissue, Open Approach (ICD-10-PCS; 2020-03-15)
PROC: 06BP4ZZ Excision of Right Saphenous Vein, Percutaneous Endoscopic Approach (ICD-10-PCS; 2020-03-15)
PROC: 0210099 Bypass Coronary Artery, One Artery from Left Internal Mammary with Autologous Venous Tissue, Open Approach (ICD-10-PCS; principal; 2020-03-15 07:30)
DX: I25.10 Atherosclerotic heart disease of native coronary artery without angina pectoris (principal); J98.11 Atelectasis; J90 Pleural effusion, not elsewhere classified; D62 Acute posthemorrhagic anemia; Z86.73 Personal history of transient ischemic attack (TIA), and cerebral infarction without residual deficits; I35.1 Nonrheumatic aortic (valve) insufficiency; R00.1 Bradycardia, unspecified; I48.91 Unspecified atrial fibrillation; I48.19 Other persistent atrial fibrillation

== ENCOUNTER → 2020-04-21 12:41 | Outpatient (CLI) | payer BC ==
[2020-03-16 10:23] VITALS: BMI 31.3
[~2020-04-21 12:41] MED LIST changes: +BETAPACE 80 MG80 MG PO; +PERCOCET 5-3251 TAB PO
== END | disposition home or self-care (01) ==
LOC: D.RAD 12:41
PROVIDERS: ATTEND Thoracic Surgery (Cardiothoracic Vascular Surgery)
DX: Z95.1 Presence of aortocoronary bypass graft (principal)

== ENCOUNTER 2020-04-28 11:51 | Day surgery (SDC) | payer BC ==
[2020-04-21 13:40] LABS: BASOPHILS 0.9 % (0-2); EOSINOPHILS 2.1 % (0-7); HEMATOCRIT 34.5 % (42.0-54.0); HEMOGLOBIN 10.9 g/dL (13.5-17.5); IMMATURE GRANULOCYTES 0.3 % (0-5); LYMPHOCYTES 16.1 % (15-50); MCH 25.4 pg (26.0-34.0); MCHC 31.6 g/dL (31.0-37.0); MCV 80.4 fL (80.0-100.0); MEAN PLATELET VOLUME 8.1 fL (7.4-10.4); MONOCYTES 6.4 % (2-11); NEUTROPHILS 74.2 % (40-80); RBC 4.29 10x6/uL (4.20-6.10); RDW 14.3 % (11.5-14.5); WBC 6.8 10x3/uL (4.8-10.8)
[2020-04-21 13:42] LABS: PLATELET COUNT 208 10x3/uL (130-400)
[2020-04-21 13:58] LABS: ANION GAP 13.7 mmol/L (8-16); CALCIUM 9.6 mg/dL (8.5-10.1); CARBON DIOXIDE 25.6 mmol/L (21.0-32.0); CREATININE - SERUM 1.2 mg/dL (0.6-1.3); POTASSIUM - SERUM 4.3 mmol/L (3.5-5.1)
[~2020-04-28] VITALS: Ht 182.9 cm; Wt 94.7 kg
--- NOTE | ~2020-04-28 | HEMODYNAMI ---
PATIENT:ESTEPHANIE GILES MEDICAL RECORD: [id number] : 56 LOCATION:[facility] ADMISSION DATE: 04/28/20 Generatedon:04/28/202013:56 Patient name: ESTEPHANIE GILES Patient #: [id number] SSN: [id number] : 1960 Date of study: 04/28/2020 Page: Of Hemodynamic Procedure Report Patient Data Patient Demographics Procedure consent was obtained First Name: ESTEPHANIE Gender: Male Last Name: CHAN : 1960 Middle Initial: ANGEL Age: 59 year(s) Patient #: [id number] Race: SSN: [id number] Additional ID: [id number] Contact details [address]: [address] [place] [address] State: [place] City: [place] Zip code: [address] Past Medical History Allergies: No known allergies Admission Admission Data Admission Date: 04/28/2020 Admission Time: 11:51 Lab Results Lab Result Date: 04/28/2020 Lab Result Time: 0:00 Biochemistry Name Units Result Min Max BUN mg/dl 19 --(----)*- 7 18 Creatinine mg/dl 1.2 --(---*)-- 0.6 1.3 CBC Name Units Result Min Max Hemoglobin g/dl 10.2 *-(----)-- 13.5 17.5 Procedure Procedure Types Cath Procedure Diagnostic Procedure Cardioversion External Procedure Description Procedure Date Procedure Date: 04/28/2020 Procedure Start Time: 13:47 Procedure End Time: 13:52 Procedure Staff Name Function Ian Salinas MD Performing Physician Marlena Reed RT Monitor Rosangela Spencer RT Scrub Jae Perdomo RN Nurse Sly Tracey CRNA Additional personnel Procedure Data Cath Procedure Estimated blood loss: 5 ml Procedure Complications No complications Procedure Medications Medication Administration Route Dosage 0.9% NaCl I.V. 100 ml/hr Oxygen etCO2 Nasal cannula 4 l/min Refer to Anesthesia Notes for Sedation Medications Hemodynamics Rest HGB: 10.2 (g/dl) Heart Rate: 77 (bpm) Snapshots Pre Cath Intra NCS Post Cath Vital Signs Time Heart Resp SPO2 etCO2 NIBP (mmHg) Rhythm Pain Sedation Rate (ipm) (%) (mmHg) Status Level (bpm) 13:42:08 65 16 97 0 133/84(105) NSR 0 (11) 10(A) , No pain 13:46:18 78 22 100 21.7 122/77(93) NSR 0 (11) 8(A) , No pain 13:50:28 61 24 95 0 104/61(77) NSR 0 (11) 9(A) , No pain 13:52:27 60 23 92 0 98/61(72) NSR 0 (11) 10(A) , No pain Medications Time Medication Route Dose Verified Delivered Reason Notes Effective ness by by 13:38:09 Oxygen etCO2 4 Jae Rowe for low Nasal l/min Conor Perdomo 02 sats cannula RN RN 13:38:52 0.9% NaCl I.V. 100 Jae Rowe Per ml/hr Conor Perdomo physician RN RN 13:40:34 Refer to Jae Rowe for Anesthesia Conor Perdomo sedation Notes for RN RN Sedation Medications Procedure Log Time Note 13:31:41 Diagnostic Cath Status : Elective 13:32:01 Procedure Status Cardioversion. 13:32:03 Jae Perdomo RN sent for patient. Start room use. 13:32:04 Time tracking: Regular hours (M-F 7:00 - 5:00) 13:32:11 Plan of Care:Hemodynamics will remain stable., Cardiac rhythm will remain stable., Comfort level will be maintained., Respiratory function will remain adequate., Patient/ family verbilizes understanding of procedure., Procedure tolerated without complication., Recovers from procedure without complications.. 13:34:38 Lab Result : BUN 19 mg/dl 13:34:38 Lab Result : Hemoglobin 10.2 g/dl 13:34:38 Lab Result : Creatinine 1.2 mg/dl 13:36:31 Patient received from Pre/Post Procedure Room to CCL 2 Alert and oriented. Tansferred to table in Supine position. 13:36:33 Signed procedure consent form obtained from patient. 13:36:34 Warm blankets applied, and ike hugger turned on for patient comfort. 13:36:34 Correct patient and procedure confirmed by team. 13:36:52 ECG and BP/O2 sat monitors applied to patient. 13:36:52 Vital chart was started 13:36:54 Baseline sample Acquired. 13:37:13 Full Disclosure recording started 13:37:16 H&P Date Dictated: 04/28/2020 Within 30 days and on chart., H&P Addendum completed by physician on day of procedure. (MUST COMPLETE FOR ALL OUTPATIENTS). 13:37:18 Pre-procedure instructions explained to patient. 13:37:18 Pre-op teaching completed and patient verbalized understanding. 13:37:20 Family in patients room. 13:37:21 Patient NPO since Midnight. 13:37:25 Is the patient allergic to Iodine/contrast media? No. 13:37:26 Was the patient premedicated? No 13:38:09 Oxygen 4 l/min etCO2 Nasal cannula was administered by Jae Perdomo RN; for low 02 sats; Verbal order read back and verified. 13:38:11 Is patient on blood thinner?Yes 13:38:16 ACC The patient was administered the following blood thiners within the last 24 hours: Eliquis 13:38:17 Patient diabetic? Yes. 13:38:18 If diabetic: On Metformin? Yes 13:38:19 If on Metformin: Last Dose? 04/28/2020 13:38:23 Previous problem with sedation/anesthesia? No ? 13:38:24 Snore? Yes 13:38:25 Sleep apnea? No 13:38:26 Deviated septum? Yes 13:38:27 Opens mouth fully? No 13:38:28 Sticks out tongue? No 13:38:31 Airway obstruction? No ? 13:38:34 Dentures? No ? 13:38:40 Patient pain scale 0/10 ?. 13:38:49 IV patent on arrival in left forearm with 0.9% NaCl at O. 13:38:51 Lab results completed and on chart. 13:38:52 0.9% NaCl 100 ml/hr I.V. was administered by Jae Perdomo RN; Per physician; Verbal order read back and verified. 13:38:55 Alarms reviewed by R. N. 13:38:56 Sharps counted by scrub and verified by R.N. 13:39:54 Sly Tracey CRNA present and monitoring patient for TIVA. 13:40:00 Quick combo pads placed on patients chest and back. 13:40:34 Refer to Anesthesia Notes for Sedation Medications was administered by Jae Perdomo RN; for sedation; Verbal order read back and verified. 13:40:54 Physician arrived 13:40:54 --------ALL STOP TIME OUT------ 13:40:55 Final Timeout: patient, procedure, and site verified with staff and physician. All members of the team are in agreement. 13:41:07 Fire Safety Assessment: C--Open oxygen or nitrous oxide is being used. 13:41:10 Physical assessment completed. ASA score P 2 - A patient with mild systemic disease as per Ian Salinas MD. 13:41:14 Sedation plan: TIVA Medication:Propofol 13:46:30 Procedure started. 13:46:30 Baseline sample Acquired. 13:46:37 Defibrillator synced and charged to 200 Joules. 13:46:41 Shock delivered. 13:47:14 Patient cardioverted to sinus rhythm . 13:47:20 Procedure ended.(Physican Out) 13:48:13 Sharps counted by scrub and verified by R.N. 13:50:39 Insertion/operative site no bleeding no hematoma. 13:50:43 Post Procedure Pulses reassessed and unchanged 13:50:47 Post procedure rhythm: sinus rhythm 13:50:49 Estimated blood loss: 5 ml 13:50:50 Post procedure instruction explained to patient.Patient verbalizes understanding. 13:50:51 Patient needs reinforcement of post procedure teaching. 13:50:59 Procedure and supply charges have been captured, reviewed, submitted and are correct. 13:51:27 Procedure Complication : No complications 13:52:13 Vital chart was stopped 13:52:20 Operative report dictated upon procedure completion. 13:52:20 See physician's report for complete and final results. 13:52:23 Report given to Pre/Post Procedure Room. 13:52:25 Patient transfered to Pre/Post Procedure Room with Stretcher. 13:52:27 Procedure ended. 13:52:27 Full Disclosure recording stopped 13:52:31 End room use (Document Last) 13:53:16 End room use (Document Last) 13:53:55 End room use (Document Last) Signature Audit [place] Stage Time Signature Unsigned Intra-Procedure 04/28/2020 Marlena Reed 1:53:16 PM RT(R) Intra-Procedure 04/28/2020 Jae 1:53:55 PM Lorigan RN Intra-Procedure 04/28/2020 Ian Salinas MD 1:56:13 PM Signatures Performing Physician : Signature : Ian Salinas MD Date : Time : Monitor : Marlena Reed RT Signature : Date : Time : Nurse : Jae Lorigan Signature : RN Date : Time : [facility] [address] [place] [address]
[2020-04-28] MEDS ORDERED: DILTIAZEM 24HR120 M3 PO (12:43)
[2020-04-28] MEDS ORDERED: AMBIEN10 MG PO (12:44)
[2020-04-28] MEDS ORDERED: BEMPEDOIC ACID 180 MG PO (12:45)
[2020-04-28] MEDS ORDERED: ELIQUIS5 MG PO (12:46)
[2020-04-28] MEDS ORDERED: DICLOFENAC SODI50 MG PO (12:47)
[2020-04-28] MEDS ORDERED: NITROQUICK0.4 MG SL (12:48)
[2020-04-28 12:55] VITALS: BP 123/70; Ht 182.9 cm; Wt 94.7 kg
[2020-04-28 13:06] LABS: BASOPHILS 0.9 % (0-2); EOSINOPHILS 2.6 % (0-7); HEMATOCRIT 32.6 % (42.0-54.0); HEMOGLOBIN 10.2 g/dL (13.5-17.5); IMMATURE GRANULOCYTES 0.2 % (0-5); LYMPHOCYTES 18.4 % (15-50); MCHC 31.3 g/dL (31.0-37.0); MCV 79.9 fL (80.0-100.0); MEAN PLATELET VOLUME 8.2 fL (7.4-10.4); MONOCYTES 8.6 % (2-11); NEUTROPHILS 69.3 % (40-80); PLATELET COUNT 186 10x3/uL (130-400); RBC 4.08 10x6/uL (4.20-6.10); RDW 14.4 % (11.5-14.5); WBC 5.3 10x3/uL (4.8-10.8)
[2020-04-28 13:16] LABS: INR 1.57 (0.85-1.17); PROTIME 18.6 SECONDS (11.6-15.0)
[2020-04-28 13:17] LABS: ANION GAP 11.2 mmol/L (8-16); CALCIUM 8.9 mg/dL (8.5-10.1); CARBON DIOXIDE 27.1 mmol/L (21.0-32.0); CREATININE - SERUM 1.2 mg/dL (0.6-1.3); POTASSIUM - SERUM 4.3 mmol/L (3.5-5.1)
--- NOTE | 2020-04-28 14:00 | NUR ---
PT RECEIVED VIA STRETCHER FROM DIRECTOR OF CAREER SERVICES FOR RECOVERY AFTER SUCCESSFUL CARDIOVERSION. PT AWAKE AND ALERT, DENIES PAIN OR DISCOMFORT. IV PATENT INFUSING VIA L ARM PER ORDERS. PT PLACED ON CARDIAC MONITORS AND O2 VIA NC AT 1L. SMALL RED AREA IN MIDDLE OF CHEST FROM SHOCK. CALL LIGHT IN REACH, AT BS
--- NOTE | 2020-04-28 14:44 | NUR ---
PT RESTING W/O PAIN OR DISCOMFORT. HR REMAINS IN NSR. OTHER VS STABLE.
--- NOTE | 2020-04-28 15:02 | NUR ---
DISCHARGE INSTRUCTIONS REVIEWED W PT AND , BOTH VERBALIZED UNDERSTANDING. IV REMOVED W CATH INTACT. O2 REMOVED. WAITING ON DR MORIN TO DISCHARGE
--- NOTE | 2020-04-28 15:10 | NUR ---
DR MORIN AT , NO NEW ORDERS RECEIVED. MONITORS REMOVED, PT UP TO DRESS FOR DISCHARGE
--- NOTE | 2020-04-28 15:15 | NUR ---
PT AMBULATED TO BR, VOIDING W/O DIFFICULITY. PT THEN DISCHARGE VIA WC TO TO WAITING IN PRIVATE VEHICLE. PT HAD ALL BELONGINGS AND DISCHARGE PAPERWORK
== END 2020-04-28 15:15 | disposition home or self-care (01) ==
LOC: D.CATH 11:51
PROVIDERS: ATTEND Internal Medicine Cardiovascular Disease
DX: I48.91 Unspecified atrial fibrillation (principal); R42 Dizziness and giddiness; R06.00 Dyspnea, unspecified; I25.10 Atherosclerotic heart disease of native coronary artery without angina pectoris